=== PATIENT | male | born 1950 | race Native Hawaiian/Other Pacific Islander ===

== ENCOUNTER 2016-10-09 12:25 | Inpatient (IN) | payer BC ==
[2016-10-09] VITALS (9 sets, daily range): BP systolic 171–210; BP diastolic 83–96; PULSE 47–64; RESP 20; TEMP 96.8–98.3; O2SAT 94–96
[~2016-10-09] VITALS: Ht 167.6 cm; Wt 82.9 kg
[~2016-10-09 12:25] MED LIST: ALPR0.25 PO; ASPI81TA11 PO; AUGM875T PO; CARD4TAB2 PO; CITA20TA4 PO; FENO50TA PO; FURO20TA PO; GLIP5 PO; GLUCTAB PO; LIPI20TA PO; LOSA100T PO; PROC90TA PO
--- NOTE | 2016-10-09 12:59 | PD ---
HPI Chief Complaint: Respiratory Symptoms Time Seen by Provider: 12:54 Travel History International Travel<30 days: No Contact w/Intl Traveler<30days: No Traveled to known affect area: No History of Present Illness HPI 66-year-old male with history of COPD, hypertension, on Lasix although does not have confirmed history of CHF, presents to the ER today for 2 weeks' history of dyspnea on exertion getting worse, bilateral leg swelling, and had been seen by primary care physician and Dr. Huynh of pulmonology, sent in by primary care physician today for shortness of breath. Apparently, they had discussed increasing his Lasix with him but they were worried about his chronic renal insufficiency. Symptoms worsen with laying down. He denies any chest pains, fevers, or any other symptoms. Modifying Factors: None Associated Signs & Symptoms: Shortness of breath, dyspnea on exertion, leg swelling for 2 weeks Risk Factors: COPD history PFSH Past Medical History Anxiety: Yes Cancer: No High Cholesterol: Yes COPD: Yes Diabetes: Yes Patient Takes Glucophage: Yes Gastrointestinal Disorders: No Genitourinary: No Hypertension: Yes Immune Disorder: No Implanted Vascular Access Dvce: No Neurologic: No Reproductive: No Sleep Apnea: Yes Influenza Vaccination: No Past Surgical History Appendectomy: Yes Cholecystectomy: Yes Other Surgery: No Social History Alcohol Use: No Tobacco Use: No Substance Use: No Allergies-Medications (Allergen,Severity, Reaction): Coded Allergies: No Known Allergies (Verified , 10/09/16) Reported Meds & Prescriptions Reported Meds & Active Scripts Active Reported Glipizide 5 Mg Tab 2.5 Mg PO BIDAC Take 30 minutes before a meal Furosemide 20 Mg Tab 20 Mg PO DAILY Tricor (Fenofibrate) 145 Mg Tab 145 Mg PO DAILY Takw with food. Cardura (Doxazosin Mesylate) 4 Mg Tab 4 Mg PO DAILY Citalopram (Citalopram Hydrobromide) 20 Mg Tab 20 Mg PO DAILY Lipitor (Atorvastatin Calcium) 20 Mg Tab 20 Mg PO HS Aspirin 81 Mg Chew 81 Mg CHEW DAILY Alprazolam 0.25 Mg Tab 0.25 Mg PO HS Losartan (Losartan Potassium) 100 Mg Tab 100 Mg PO DAILY Metformin (Metformin HCl) 1,000 Mg Tab 1,000 Mg PO BIDPC With meals Review of Systems Except as stated in HPI: all other systems reviewed are Neg Physical Exam Narrative GENERAL: Well-developed elderly male patient currently in mild respiratory distress. Awake and oriented 3. SKIN: Focused skin assessment warm/dry. HEAD: Atraumatic. Normocephalic. EYES: Pupils equal and round. No scleral icterus. No injection or drainage. ENT: No nasal bleeding or discharge. Mucous membranes pink and moist. NECK: Trachea midline. No JVD. CARDIOVASCULAR: Regular rate and rhythm. No murmur appreciated. RESPIRATORY: No accessory muscle use. Decreased at the bases. Breath sounds equal bilaterally. GASTROINTESTINAL: Abdomen soft, non-tender, nondistended. Hepatic and splenic margins not palpable. MUSCULOSKELETAL: No obvious deformities. No clubbing. No cyanosis. Bilateral pitting edema the legs. NEUROLOGICAL: Awake and alert. No obvious cranial nerve deficits. Motor grossly within normal limits. Normal speech. PSYCHIATRIC: Appropriate mood and affect; insight and judgment normal. Data Data Last Documented VS Vital Signs Date Time Temp Pulse Resp B/P Pulse Ox O2 Delivery O2 Flow Rate FiO2 10/09/16 12:57 96 Room Air 10/09/16 12:57 20 10/09/16 12:56 54 199/89 10/09/16 12:30 98.3 Orders Complete Blood Count With Diff (10/09/16 12:54) Comprehensive Metabolic Panel (10/09/16 12:54) B-Type Natriuretic Peptide (10/09/16 12:54) D-Dimer (10/09/16 12:54) Act Partial Throm Time (Ptt) (10/09/16 12:54) Prothrombin Time / Inr (Pt) (10/09/16 12:54) Ckmb (Isoenzyme) Profile (10/09/16 12:54) Troponin I (10/09/16 12:54) Iv Access Insert/Monitor (10/09/16 12:54) Ecg Monitoring (10/09/16 12:54) Oximetry (10/09/16 12:54) Oxygen Administration (10/09/16 12:54) Chest, Single Ap (10/09/16 12:54) Sodium Chloride 0.9% Flush (Ns Flush) (10/09/16 13:00) Nitroglycerin 2% Oint (Nitroglycerin 2% (10/09/16 13:00) Furosemide Inj (Lasix Inj) (10/09/16 13:30) CKMB (10/09/16 12:40) CKMB% (10/09/16 12:40) Alprazolam (Xanax) (10/09/16 14:00) Clonidine (Catapres) (10/09/16 14:00) Ventilation & Perfusion Scan (10/09/16 14:05) Echo 2d Limited (10/09/16 14:05) Us Leg Venous Doppler Bilat (10/09/16 14:09) Labs Laboratory Tests Test 10/09/16 12:40 White Blood Count 3.7 TH/MM3 Red Blood Count 4.32 MIL/MM3 Hemoglobin 10.4 GM/DL Hematocrit 33.0 % Mean Corpuscular Volume 76.3 FL Mean Corpuscular Hemoglobin 23.9 PG Mean Corpuscular Hemoglobin 31.4 % Concent Red Cell Distribution Width 14.9 % Platelet Count 196 TH/MM3 Mean Platelet Volume 8.8 FL Neutrophils (%) (Auto) 64.9 % Lymphocytes (%) (Auto) 19.8 % Monocytes (%) (Auto) 12.1 % Eosinophils (%) (Auto) 2.3 % Basophils (%) (Auto) 0.9 % Neutrophils # (Auto) 2.5 TH/MM3 Lymphocytes # (Auto) 0.7 TH/MM3 Monocytes # (Auto) 0.4 TH/MM3 Eosinophils # (Auto) 0.1 TH/MM3 Basophils # (Auto) 0.0 TH/MM3 CBC Comment AUTO DIFF Differential Comment AUTO DIFF CONFIRMED Rouleau PRESENT Prothrombin Time 10.9 SEC Prothromb Time International 1.0 RATIO Ratio Activated Partial 25.4 SEC Thromboplast Time D-Dimer Quantitative (PE/DVT) 0.76 MG/L FEU Sodium Level 147 MEQ/L Potassium Level 3.9 MEQ/L Chloride Level 111 MEQ/L Carbon Dioxide Level 26.5 MEQ/L Anion Gap 10 MEQ/L Blood Urea Nitrogen 23 MG/DL Creatinine 1.50 MG/DL Estimat Glomerular Filtration 47 ML/MIN Rate Random Glucose 98 MG/DL Calcium Level 9.2 MG/DL Total Bilirubin 0.3 MG/DL Aspartate Amino Transf 23 U/L (AST/SGOT) Alanine Aminotransferase 29 U/L (ALT/SGPT) Alkaline Phosphatase 31 U/L Total Creatine Kinase 165 U/L Creatine Kinase MB 3.1 NG/ML Troponin I 0.04 NG/ML B-Type Natriuretic Peptide 149 PG/ML Total Protein 6.5 GM/DL Albumin 3.3 GM/DL MDM Medical Decision Making Medical Screen Exam Complete: Yes Emergency Medical Condition: Yes Medical Record Reviewed: Yes Interpretation(s) EKG shows NSR, no ST elevation or depression, and no arrhythmias. No significant T-wave inversions. Laboratory Tests Test 10/09/16 12:40 White Blood Count 3.7 TH/MM3 (4.0-11.0) Red Blood Count 4.32 MIL/MM3 (4.50-5.90) Hemoglobin 10.4 GM/DL (13.0-17.0) Hematocrit 33.0 % (39.0-51.0) Mean Corpuscular Volume 76.3 FL (80.0-100.0) Mean Corpuscular Hemoglobin 23.9 PG (27.0-34.0) Mean Corpuscular Hemoglobin 31.4 % Concent (32.0-36.0) Monocytes (%) (Auto) 12.1 % (0.0-8.0) Lymphocytes # (Auto) 0.7 TH/MM3 (1.0-4.8) Rouleau PRESENT (NORMAL) D-Dimer Quantitative (PE/DVT) 0.76 MG/L FEU (0.00-0.50) Sodium Level 147 MEQ/L (136-145) Chloride Level 111 MEQ/L (98-107) Blood Urea Nitrogen 23 MG/DL (7-18) Creatinine 1.50 MG/DL (0.60-1.30) Estimat Glomerular Filtration 47 ML/MIN (>89) Rate Alkaline Phosphatase 31 U/L (45-117) B-Type Natriuretic Peptide 149 PG/ML (0-100) Albumin 3.3 GM/DL (3.4-5.0) Last 24 hours Impressions Chest X-Ray 10/09/16 1254 Signed Impressions: Service Date/Time: September 13:13 - CONCLUSION: Mild interstitial and air space opacity in the lower lung zones, right greater than left. Although nonspecific pulmonary edema could have this appearance. Brock Lopez MD Differential Diagnosis Shortness of breath, bilateral leg swelling, dyspnea on exertionCOPD exacerbation versus CHF versus pneumonia versus fluid overload Narrative Course Chest x-ray is indicative of pulmonary edema. He was given Lasix and nitroglycerin in the ER. His blood pressure only came down a small amount and patient states that he has taken Xanax for anxiety no past and that has with his blood pressure as well. Patient was given Xanax. In addition, clonidine and was ordered as well for better blood pressure control. Patient has no known history of CHF and at this point, I suspect that he will need further evaluation. His d-dimer is elevated. I have contemplating putting him in for CTA versus V/Q but considering that his creatinine is elevated, V/Q is considered. Case was discussed with Dr. Huynh, patient's weather anchor, and he states that he feels the patient should be admitted for further evaluation of this new issue as well and agrees with VQ scan as well. He also asked for 2-D echo and leg ultrasounds for further evaluation. Case is discussed with Dr. Neumann for admission. Diagnosis Primary Impression: Pulmonary edema Admitting Information Admitting Physician Requests: Admit Cristin Samson MD October 09, 2016 12:59
[2016-10-09] MEDS ORDERED: SODIUM CHLORIDE 0.9% FLUSH 10 ML FLUSH IVF PRN (13:00)
[2016-10-09] MEDS ORDERED: NITROGLYCERIN 2% OINT 1 GM PACKET TOPICAL ONE (13:00)
[2016-10-09 13:06] LABS: AUTOMATED NEUTROPHIL # 2.5 TH/MM3 (1.8-7.7); BASOPHIL % 0.9 % (0.0-2.0); EOSINOPHIL # 0.1 TH/MM3 (0-0.4); EOSINOPHIL % 2.3 % (0.0-4.0); LYMPH % 19.8 % (9.0-44.0); LYMPHOCYTE # 0.7 TH/MM3 (1.0-4.8); MEAN CELL VOLUME 76.3 FL (80.0-100.0); MEAN CORPUSCULAR HEMOGLOBIN 23.9 PG (27.0-34.0); MEAN CORPUSCULAR HGB CONC 31.4 % (32.0-36.0); MONO % 12.1 % (0.0-8.0); NEUT % 64.9 % (16.0-70.0); PLATELET COUNT 196 TH/MM3 (150-450); RED BLOOD COUNT 4.32 MIL/MM3 (4.50-5.90); RED CELL DISTRIBUTION WIDTH 14.9 % (11.6-17.2); WHITE BLOOD COUNT 3.7 TH/MM3 (4.0-11.0)
[2016-10-09] MEDS ORDERED: FENO50TA PO (13:06)
[2016-10-09] MEDS ORDERED: LOSA100T PO (13:06)
[2016-10-09] MEDS ORDERED: CITA20TA4 PO (13:06)
[2016-10-09] MEDS ORDERED: ASPI81CH CHEW (13:06)
[2016-10-09] MEDS ORDERED: FURO20TA PO (13:06)
[2016-10-09] MEDS ORDERED: CARD4TAB2 PO (13:06)
[2016-10-09] MEDS ORDERED: ALPR0.25 PO (13:06)
[2016-10-09] MEDS ORDERED: LIPI20TA PO (13:06)
[2016-10-09] MEDS ORDERED: METF1000 PO (13:06)
[2016-10-09] MEDS ORDERED: GLIP5TAB8 PO (13:06)
[2016-10-09 13:07] LABS: HEMO FLAGS AUTO DIFF
[2016-10-09 13:18] LABS: CHLORIDE 111 MEQ/L (98-107); POTASSIUM 3.9 MEQ/L (3.5-5.1); SODIUM (NA) 147 MEQ/L (136-145)
[2016-10-09 13:22] LABS: ANION GAP 10 MEQ/L (5-15); BICARBONATE 26.5 MEQ/L (21.0-32.0); BLOOD UREA NITROGEN 23 MG/DL (7-18)
[2016-10-09 13:25] LABS: ALT (GPT) 29 U/L (12-78); AST (GOT) 23 U/L (15-37); ROULEAUX PRESENT (NORMAL); SCAN/DIFF AUTO DIFF CONFIRMED
[2016-10-09 13:26] LABS: GLOMERULAR FILTRATION RATE 47 ML/MIN (>89)
[2016-10-09 13:27] LABS: TOTAL BILIRUBIN ADULT 0.3 MG/DL (0.2-1.0)
[2016-10-09 13:28] LABS: ALKALINE PHOSPHATASE 31 U/L (45-117); CREATINE KINASE 165 U/L (39-308)
[2016-10-09 13:29] LABS: APTT (PATIENT) 25.4 SEC (24.3-30.1); PROTHROMBIN TIME - PATIENT 10.9 SEC (9.8-11.6)
[2016-10-09] MEDS ORDERED: FUROSEMIDE 40 MG/4 ML VIAL IV PUSH ONE (13:30)
[2016-10-09 13:40] LABS: CKMB 3.1 NG/ML (0.5-3.6)
--- NOTE | 2016-10-09 13:52 | RADHPO ---
EXAM DATE/TIME: 10/09/2016 13:13 [facility] COMPARISON: CHEST SINGLE AP, November 27, 2014, 13:47. INDICATIONS : Patient has been short of breath for two weeks. MEDICAL HISTORY : None. SURGICAL HISTORY : None. ENCOUNTER: Initial ACUITY: 2 weeks PAIN SCORE: 0/10 LOCATION: Bilateral chest FINDINGS: Portable AP view of the chest demonstrates a normal-sized cardiac silhouette. There are abnormal inte rstitial and air space opacities in the lower lung zones bilaterally. No pleural effusion or pneumoth orax is identified. The bones and soft tissues demonstrate no acute finding. CONCLUSION: Mild interstitial and air space opacity in the lower lung zones, right greater than left. Although no nspecific pulmonary edema could have this appearance. Brock Lopez MD on October 09, 2016 at 13:25 Board Certified Radiologist. This report was verified electronically.
[2016-10-09] MEDS ORDERED: ALPRAZolam 0.5 MG TAB PO ONE (14:00)
[2016-10-09] MEDS ORDERED: cloNIDine HCL 0.2 MG TAB PO ONE (14:00)
[2016-10-09] MEDS ORDERED: GLUCAGON 1 MG/ML VIAL OTHER PRN (14:45)
[2016-10-09] MEDS ORDERED: DEXTROSE 50% IN WATER 50 ML VIAL(D50) IV PRN (14:45)
--- NOTE | 2016-10-09 14:51 | HHI.HP ---
[facility] Porsche Yoder MD Admission Diagnosis pulmonary edema Diagnoses: (1) Pulmonary edema Diagnosis: Principal Chief Complaint: shortness of breath Travel History International Travel<30 Days: No Contact w/Intl Traveler <30 Da: No Traveled to Known Affected Are: No History of Present Illness patient is a 66 y/o male with history of hypertension and diabetes who presented to ER with shortness of breath. he says that he started to have sob about two weeks which has been getting worse. he denies any chest pain. he reports 14 pound weigh gain over the past two weeks. he's had orthopnea along with worsening pedal edema.he denies any abdominal pain, fever or chills. he says that his sob has got worse to the extent that he's sot able to walk as much. Review of Systems Constitutional: COMPLAINS OF: Fatigue, Weight gain, DENIES: Fever, Weight loss , Chills, Night Sweats Eyes: DENIES: Blurred vision, Diplopia, Vision loss, Double Vision Ears, nose, mouth, throat: DENIES: Tinnitus, Vertigo, Throat pain, Epistaxis Respiratory: DENIES: Apneas, Cough, Snoring, Wheezing, Hemoptysis, Sputum production, Shortness of breath Cardiovascular: COMPLAINS OF: Dyspnea on Exertion, Lower Extremity Edema, Orthopnea, DENIES: Chest pain, Palpitations, Syncope, PND, Claudication Gastrointestinal: DENIES: Abdominal pain, Black stools, Bloody stools, Constipation, Diarrhea, Nausea, Vomiting, Difficulty Swallowing, Anorexia Genitourinary: DENIES: Urinary frequency, Urgency, Hematuria, Dysuria Musculoskeletal: DENIES: Joint pain, Muscle aches, Stiffness, Joint Swelling Integumentary: DENIES: Rash Neurologic: DENIES: Abnormal gait, Headache, Localized weakness, Paresthesias, Seizures, Speech Problems, Tremor, Poor Balance Psychiatric: DENIES: Anxiety, Confusion, Mood changes, Depression, Hallucinations, Agitation, Suicidal Ideation, Homicidal Ideation, Delusions Past Family Social History Past Medical History hypertension diabetes mellitus rectal cancer dyslipidemia Past Surgical History rectal surgery cholecystectomy appendectomy Reported Medications Glipizide 5 Mg Tab 2.5 Mg PO BIDAC Take 30 minutes before a meal Furosemide 20 Mg Tab 20 Mg PO DAILY Tricor (Fenofibrate) 145 Mg Tab 145 Mg PO DAILY Takw with food. Cardura (Doxazosin Mesylate) 4 Mg Tab 4 Mg PO DAILY Citalopram (Citalopram Hydrobromide) 20 Mg Tab 20 Mg PO DAILY Lipitor (Atorvastatin Calcium) 20 Mg Tab 20 Mg PO HS Aspirin 81 Mg Chew 81 Mg CHEW DAILY Alprazolam 0.25 Mg Tab 0.25 Mg PO HS Losartan (Losartan Potassium) 100 Mg Tab 100 Mg PO DAILY Metformin (Metformin HCl) 1,000 Mg Tab 1,000 Mg PO BIDPC With meals Allergies: Coded Allergies: No Known Allergies (Verified , 10/09/16) Active Ordered Medications Current Medications Sodium Chloride (NS Flush) 2 ml UNSCH PRN IVF FLUSH AFTER USING IV ACCESS; Start 10/09/16 at 13:00 Nitroglycerin (Nitroglycerin 2% Oint) 1 inch ONCE ONCE TOPICAL Last administered on 10/09/16 13:09; Start 10/09/16 at 13:00; Stop 10/09/16 at 13:01 ; Status DC Furosemide (Lasix Inj) 40 mg ONCE ONCE IV PUSH Last administered on 10/09/16 13:36; Start 10/09/16 at 13:30; Stop 10/09/16 at 13:31; Status DC Alprazolam (Xanax) 0.5 mg ONCE ONCE PO Last administered on 10/09/16 13:50; Start 10/09/16 at 14:00; Stop 10/09/16 at 14:01; Status DC Clonidine (Catapres) 0.2 mg ONCE ONCE PO Last administered on 10/09/16 14:40 ; Start 10/09/16 at 14:00; Stop 10/09/16 at 14:01; Status DC Family History not relevant to this admission. Social History no smoking. Physical Exam Vital Signs Vital Signs Date Time Temp Pulse Resp B/P Pulse Ox O2 Delivery O2 Flow Rate FiO2 10/09/16 14:22 60 20 194/83 96 Room Air 10/09/16 12:57 96 Room Air 10/09/16 12:57 20 96 Room Air 10/09/16 12:56 54 20 199/89 95 Room Air 10/09/16 12:35 20 96 Room Air 10/09/16 12:30 98.3 64 20 206/87 96 Physical Exam GENERAL: looks weak, in no apparent distress. SKIN: No rashes, ecchymoses or lesions. Cool and dry. HEAD: Atraumatic. Normocephalic. No temporal or scalp tenderness. EYES: Pupils equal round and reactive. Extraocular motions intact. No scleral icterus. No injection or drainage. ENT: Nose without bleeding, purulent drainage or septal hematoma. Throat without erythema, tonsillar hypertrophy or exudate. Uvula midline. Airway patent. NECK: Trachea midline. No JVD or lymphadenopathy. Supple, nontender, no meningeal signs. CARDIOVASCULAR: Regular rate and rhythm without murmurs, gallops, or rubs. RESPIRATORY: Clear to auscultation. Breath sounds equal bilaterally. No wheezes , rales, or rhonchi. GASTROINTESTINAL: Abdomen soft, non-tender, nondistended. No hepato-splenomegaly , or palpable masses. No guarding. MUSCULOSKELETAL: Extremities with bilateral pedal edema. NEUROLOGICAL: Awake and alert. Cranial nerves II through XII intact. Motor and sensory grossly within normal limits. Five out of 5 muscle strength in all muscle groups. Normal speech. Laboratory Laboratory Tests Test 10/09/16 12:40 White Blood Count 3.7 Red Blood Count 4.32 Hemoglobin 10.4 Hematocrit 33.0 Mean Corpuscular Volume 76.3 Mean Corpuscular Hemoglobin 23.9 Mean Corpuscular Hemoglobin 31.4 Concent Red Cell Distribution Width 14.9 Platelet Count 196 Mean Platelet Volume 8.8 Neutrophils (%) (Auto) 64.9 Lymphocytes (%) (Auto) 19.8 Monocytes (%) (Auto) 12.1 Eosinophils (%) (Auto) 2.3 Basophils (%) (Auto) 0.9 Neutrophils # (Auto) 2.5 Lymphocytes # (Auto) 0.7 Monocytes # (Auto) 0.4 Eosinophils # (Auto) 0.1 Basophils # (Auto) 0.0 CBC Comment AUTO DIFF Differential Comment AUTO DIFF CONFIRMED Rouleau PRESENT Prothrombin Time 10.9 Prothromb Time International 1.0 Ratio Activated Partial 25.4 Thromboplast Time D-Dimer Quantitative (PE/DVT) 0.76 Sodium Level 147 Potassium Level 3.9 Chloride Level 111 Carbon Dioxide Level 26.5 Anion Gap 10 Blood Urea Nitrogen 23 Creatinine 1.50 Estimat Glomerular Filtration 47 Rate Random Glucose 98 Calcium Level 9.2 Total Bilirubin 0.3 Aspartate Amino Transf 23 (AST/SGOT) Alanine Aminotransferase 29 (ALT/SGPT) Alkaline Phosphatase 31 Total Creatine Kinase 165 Creatine Kinase MB 3.1 Troponin I 0.04 B-Type Natriuretic Peptide 149 Total Protein 6.5 Albumin 3.3 Result Diagram: 10/09/16 1240 10/09/16 1240 Imaging Last Impressions Chest X-Ray 10/09/16 1254 Signed Impressions: Service Date/Time: September 13:13 - CONCLUSION: Mild interstitial and air space opacity in the lower lung zones, right greater than left. Although nonspecific pulmonary edema could have this appearance. Brock Lopez MD Assessment and Plan Assessment and Plan A/P - CHF- type unknown at this time continue with IV diuretics- cardiology consulted- says that he had an echo about four months ago. CT of the chest and abdomen, V/Q scan - pending. pulmonary and cardiology consulted. -hypertension; not uncontrolled; will resume home meds- vasotec prn- will monitor and adjust the regimen as needed. -diabetes mellitus; hold oral hypoglycemics as this time- accu-check with SSI -renal insufficiency with unknown duration- will monitor closely while on diuretics -history of rectal cancer- -DVT prophylaxis with SCD's -consult PT Discussed Condition With ER physician and the patient. . Physician Certification 2 Midnight Certification Type: Admission for Inpatient Services Order for Inpatient Services The services are ordered in accordance with Medicare regulations or non- Medicare payer requirements, as applicable. In the case of services not specified as inpatient-only, they are appropriately provided as inpatient services in accordance with the 2-midnight benchmark. Estimated LOS (days): 2 days is the estimated time the patient will need to remain in the hospital, assuming treatment plan goals are met and no additional complications. Post-Hospital Plan: Home Problem Qualifiers (1) Pulmonary edema: Qualified Code: J81.0 - Acute pulmonary edema Geno Bravo MD October 09, 2016 14:51
--- NOTE | 2016-10-09 14:54 | RADHPO ---
EXAM DATE/TIME: 10/09/2016 14:24 [facility] COMPARISON: No previous studies available for comparison. INDICATIONS : Bilateral leg swelling. Shortness of breath. MEDICAL HISTORY : Hypercholesterolemia. Hypertension. Chronic obstructive pulmonary disease. Sleep apnea. Dyspnea. Diab etes. Anxiety. SURGICAL HISTORY : Appendectomy.Cholecystectomy. ENCOUNTER: Initial ACUITY: 1 week PAIN SCORE: 0/10 LOCATION: Bilateral leg. TECHNIQUE: Venous ultrasound of the left and right leg was performed from the inguinal ligament to the proximal calf. Real-time, color Doppler and spectral tracing, compression and augmentation techniques were us ed. FINDINGS: RIGHT LEG: There is normal compressibility of the deep venous system from the inguinal region to the proximal ca lf. No echogenic clot is seen in the lumen of the common femoral, femoral, popliteal, and posterior tibial veins. There is a normal response of the venous system to proximal and distal augmentation an d respiration. LEFT LEG: There is normal compressibility of the deep venous system from the inguinal region to the proximal ca lf. No echogenic clot is seen in the lumen of the common femoral, femoral, popliteal, and posterior tibial veins. There is a normal response of the venous system to proximal and distal augmentation an d respiration. CONCLUSION: Normal examination. Brock Sanchez MD on October 09, 2016 at 14:53 Board Certified Radiologist. This report was verified electronically.
--- NOTE | 2016-10-09 15:56 | RADHPO ---
EXAM DATE/TIME: 10/09/2016 15:03 [facility] COMPARISON: No previous studies available for comparison. INDICATIONS : Shortness of breath with exertion. RADIATION DOSE: 17.04 CTDIvol (mGy) ; Combined studies - Thorax/Abdomen/Pelvis MEDICAL HISTORY : Chronic obstructive pulmonary disease. Hypertension. Renal insufficiency, chronic. Diabetes. SURGICAL HISTORY : None. ENCOUNTER: Initial ACUITY: 2 weeks PAIN SCALE: 0/10 LOCATION: chest TECHNIQUE: Volumetric scanning of the chest was performed. Using automated exposure control and adjustment of t he mA and/or kV according to patient size, radiation dose was kept as low as reasonably achievable to obtain optimal diagnostic quality images. FINDINGS: There are small bilateral pleural effusions. There is dependent airspace disease in both lungs. Trace pericardial fluid. There is no hilar, mediastinal axillary adenopathy. No acute findings in the uppe r abdomen. Small hiatal hernia. Several calcified granulomata present. CONCLUSION: 1. Small bilateral pleural effusions with dependent airspace disease in both lungs most characteristi c of atelectasis. Trace pericardial effusion. No adenopathy. No acute findings in the upper abdomen. Khris Antonio MD on October 09, 2016 at 15:47 Board Certified Radiologist. This report was verified electronically.
--- NOTE | 2016-10-09 15:58 | RADHPO ---
EXAM DATE/TIME: 10/09/2016 15:03 [facility] COMPARISON: No previous studies available for comparison. INDICATIONS : Abdominal distention. ORAL CONTRAST: No oral contrast ingested. RADIATION DOSE: 17.04 CTDIvol (mGy) ; Combined studies - Thorax/Abdomen/Pelvis MEDICAL HISTORY : Renal insufficiency, chronic. Chronic obstructive pulmonary disease. Hypertension.Diabetes. SURGICAL HISTORY : Appendectomy. Cholecystectomy. ENCOUNTER: Initial ACUITY: 2 weeks PAIN SCALE: 0/10 LOCATION: Bilateral lower quadrant TECHNIQUE: Volumetric scanning of the abdomen and pelvis was performed. Using automated exposure control and ad justment of the mA and/or kV according to patient size, radiation dose was kept as low as reasonably achievable to obtain optimal diagnostic quality images. FINDINGS: There are small bilateral pleural effusions with basilar airspace disease most characteristic of atel ectasis. No acute findings in the liver, spleen, adrenals, kidneys pancreas. Previous cholecystectomy. No bowel obstruction. No free air or free fluid. There is mild anasarca. No acute bony abnormalities. CONCLUSION: 1. No acute findings within the abdomen. Small bilateral pleural effusions.. Mild anasarca. Previous cholecystectomy and appendectomy. 2. No hydronephrosis. Khris Antonio MD on October 09, 2016 at 15:54 Board Certified Radiologist. This report was verified electronically.
[2016-10-09] MEDS: INSULIN ASPART SUPPLEMENTAL SCALE SQ SCH ×2 (16:00→21:00)
[2016-10-09] MEDS: ENALAPRILAT 1.25 MG/ML VIAL IV PUSH PRN (16:09)
--- NOTE | 2016-10-09 17:08 | ECHLIM ---
Study Study Date:10/09/2016 STUDY CONCLUSIONS SUMMARY - Left ventricle: The cavity size was normal. Wall thickness was normal. Systolic function was at the lower limits of normal. The estimated ejection fraction was in the range of 50% to 55%. Wall motion was normal; there were no regional wall motion abnormalities. - Mitral valve: Mild to moderate regurgitation. - Pulmonary arteries: PA peak pressure: 33mm Hg (S). If LV function is below 40, please consider prescribing an ACEI or ARB or document rationale for non-use. PROCEDURE DATA STUDY STATUS: Elective. Procedure: Transthoracic echocardiography. Image quality was good. Scanning was performed from the parasternal, apical, and subcostal acoustic windows. Study completion: The patient tolerated the procedure well. Transthoracic echocardiography. M-mode, complete 2D, complete spectral Doppler, and color Doppler. Patient status: Inpatient. CARDIAC ANATOMY LEFT VENTRICLE: The cavity size was normal. Wall thickness was normal. Systolic function was at the lower limits of normal. The estimated ejection fraction was in the range of 50% to 55%. Wall motion was normal; there were no regional wall motion abnormalities. AORTIC VALVE: Trileaflet; normal thickness leaflets. Doppler: Transvalvular velocity was within the normal range. There was no stenosis. Trace to mild regurgitation. AORTA: Aortic root: The aortic root was normal in size. MITRAL VALVE: Structurally normal valve. Doppler: Transvalvular velocity was within the normal range. There was no evidence for stenosis. Mild to moderate regurgitation. LEFT ATRIUM: The atrium was normal in size. RIGHT VENTRICLE: The cavity size was normal. Wall thickness was normal. PULMONIC VALVE: Doppler: Transvalvular velocity was within the normal range. There was no evidence for stenosis. No regurgitation. TRICUSPID VALVE: Structurally normal valve. Doppler: Transvalvular velocity was within the normal range. Trace regurgitation. PULMONARY ARTERY: The main pulmonary artery was normal-sized. Systolic pressure was within the normal range. RIGHT ATRIUM: The atrium was normal in size. PERICARDIUM: There was no pericardial effusion. SYSTEMIC VEINS: Inferior vena cava: The vessel was normal in size. BASIC MEASUREMENTS ADULT NORMAL Left ventricle LV internal dimension, ED, chordal level, 45.9 mm 43-52 PLAX LV internal dimension, ES, chordal level, 35.8 mm 23-38 PLAX Fractional shortening, chordal level, PLAX *22 % >29 LV posterior wall thickness, ED 9.3 mm IVS/LVPW ratio, ED *1.53 <1.3 Ventricular septum Septal thickness, ED 14.2 mm DOPPLER MEASUREMENTS ADULT NORMAL Main pulmonary artery Pressure, S *33 mm Hg =30 Tricuspid valve Regurgitant peak velocity 186 cm/s Peak RV-RA gradient, S 14 mm Hg Maximal regurgitant velocity 186 cm/s Systemic veins Estimated CVP 5 mm Hg Right ventricle RV pressure, S *33 mm Hg <30 LEGEND: Mean values are shown as u=mean value. Asterisk (*) stanley values outside specified normal range. Prepared and signed by Jose G Iglesias [id number]
--- NOTE | 2016-10-09 17:23 | PD.CONS ---
HPI Service cardiology Consult Requested By hospitalist Reason for Consult htn and chf Primary Care Physician Porsche Yoder MD History of Present Illness admitted with progressive sob and lower ext edema no chest pains gained weight seems that there was a change in meds and was taking nifedipine and stopped came with BP markedly elevated cts and xrays and ecg and lab noted Review of Systems Consitutional: COMPLAINS OF: Fatigue Respiratory: COMPLAINS OF: Shortness of breath Psychiatric: COMPLAINS OF: Depression Endocrine: COMPLAINS OF: Weight gain Past Family Social History Allergies: Coded Allergies: No Known Allergies (Verified , 10/09/16) Past Medical History htn diabetes hyperlipidemia mild cad chronic edema Past Surgical History non contributing Reported Medications Reported Meds & Active Scripts Active Reported Glipizide 5 Mg Tab 2.5 Mg PO BIDAC Take 30 minutes before a meal Furosemide 20 Mg Tab 20 Mg PO DAILY Tricor (Fenofibrate) 145 Mg Tab 145 Mg PO DAILY Takw with food. Cardura (Doxazosin Mesylate) 4 Mg Tab 4 Mg PO DAILY Citalopram (Citalopram Hydrobromide) 20 Mg Tab 20 Mg PO DAILY Lipitor (Atorvastatin Calcium) 20 Mg Tab 20 Mg PO HS Aspirin 81 Mg Chew 81 Mg CHEW DAILY Alprazolam 0.25 Mg Tab 0.25 Mg PO HS Losartan (Losartan Potassium) 100 Mg Tab 100 Mg PO DAILY Metformin (Metformin HCl) 1,000 Mg Tab 1,000 Mg PO BIDPC With meals Active Ordered Medications Current Medications Medications (Trade) Dose Ordered Sig/Priyank Route Start Time Stop Time Status Last Admin (NS Flush) 2 ml UNSCH PRN IVF 10/09/16 13:00 (D50w (Vial) Inj) 50 ml UNSCH PRN IV 10/09/16 14:45 (Glucagon Inj) 1 mg UNSCH PRN OTHER 10/09/16 14:45 (Xanax) 0.25 mg HS PO 10/09/16 21:00 (Aspirin Chew) 81 mg DAILY CHEW 10/10/16 09:00 (Lipitor) 20 mg HS PO 10/09/16 21:00 (CeleXA) 20 mg DAILY PO 10/10/16 09:00 (Cardura) 4 mg DAILY PO 10/10/16 09:00 (Tricor) 145 mg DAILY PO 10/10/16 09:00 (Cozaar) 100 mg DAILY PO 10/10/16 09:00 (Vasotec Inj) 1.25 mg Q8H PRN IV PUSH 10/09/16 15:00 10/09/16 16:09 Family History non contributing 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 drugs no tobacco Physical Exam Vital Signs Vital Signs Date Time Temp Pulse Resp B/P Pulse Ox O2 Delivery O2 Flow Rate FiO2 10/09/16 16:33 47 10/09/16 14:22 60 20 194/83 96 Room Air 10/09/16 12:57 96 Room Air 10/09/16 12:57 20 96 Room Air 10/09/16 12:56 54 20 199/89 95 Room Air 10/09/16 12:35 20 96 Room Air 10/09/16 12:30 98.3 64 20 206/87 96 Laboratory Laboratory Tests Test 10/09/16 12:40 White Blood Count 3.7 Red Blood Count 4.32 Hemoglobin 10.4 Hematocrit 33.0 Mean Corpuscular Volume 76.3 Mean Corpuscular Hemoglobin 23.9 Mean Corpuscular Hemoglobin 31.4 Concent Red Cell Distribution Width 14.9 Platelet Count 196 Mean Platelet Volume 8.8 Neutrophils (%) (Auto) 64.9 Lymphocytes (%) (Auto) 19.8 Monocytes (%) (Auto) 12.1 Eosinophils (%) (Auto) 2.3 Basophils (%) (Auto) 0.9 Neutrophils # (Auto) 2.5 Lymphocytes # (Auto) 0.7 Monocytes # (Auto) 0.4 Eosinophils # (Auto) 0.1 Basophils # (Auto) 0.0 CBC Comment AUTO DIFF Differential Comment AUTO DIFF CONFIRMED Rouleau PRESENT Prothrombin Time 10.9 Prothromb Time International 1.0 Ratio Activated Partial 25.4 Thromboplast Time D-Dimer Quantitative (PE/DVT) 0.76 Sodium Level 147 Potassium Level 3.9 Chloride Level 111 Carbon Dioxide Level 26.5 Anion Gap 10 Blood Urea Nitrogen 23 Creatinine 1.50 Estimat Glomerular Filtration 47 Rate Random Glucose 98 Calcium Level 9.2 Total Bilirubin 0.3 Aspartate Amino Transf 23 (AST/SGOT) Alanine Aminotransferase 29 (ALT/SGPT) Alkaline Phosphatase 31 Total Creatine Kinase 165 Creatine Kinase MB 3.1 Troponin I 0.04 B-Type Natriuretic Peptide 149 Total Protein 6.5 Albumin 3.3 Result Diagram: 10/09/16 1240 10/09/16 1240 Assessment and Plan Problem List: (1) Diabetes mellitus (2) Hyperlipidemia (3) Hypertension (4) Pulmonary edema Assessment and Plan: bp control and diuresis and follow up on echo Problem Qualifiers (1) Pulmonary edema: Qualified Code: J81.1 - Chronic pulmonary edema Stevie Byrd MD October 09, 2016 17:23
--- NOTE | 2016-10-09 18:21 | MB ---
cc: AMINA HUYNH M.D. DATE OF CONSULTATION: 10/09/2016. REASON FOR CONSULTATION: COPD, obstructive sleep apnea. HISTORY OF PRESENT ILLNESS Mr. Cortes is a 66-year-old male with known history of diabetes mellitus, hypertension, COPD and obstructive sleep apnea on C-PAP therapy. The patient presented to the emergency room with worsening shortness of breath. No fever. No chills. He has been constantly gaining weight and has increased ankle edema. He does have orthopnea. The patient cannot walk a few steps without being short of breath. No fever. No chills. No cough. No expectoration. PAST MEDICAL HISTORY: His past medical history is that of: 1. Diabetes mellitus. 2. Hypertension. 3. Obstructive sleep apnea. 4. Hyperlipidemia. 5. History of rectal cancer surgically removed. 6. Previous cholecystectomy. 7. Appendectomy. MEDICATIONS AT HOME: 1. Lasix. 2. Glipizide. 3. Tricor. 4. Cardura. 5. Citalopram. 6. Lipitor. 7. Aspirin. 8. Alprazolam. 9. Metformin. 10. Losartan. ALLERGIES: NONE KNOWN TO MEDICATIONS. FAMILY HISTORY: Noncontributory. REVIEW OF SYSTEMS: A twelve-point review of systems is as per the history of present illness and past history, otherwise negative. PHYSICAL EXAMINATION: GENERAL: On exam, the patient is alert. VITAL SIGNS: His temperature is 98, his pulse is 80, respirations 20, blood pressure 190/80. HEAD, EYES, EARS, NOSE, THROAT: Unremarkable. Eyes without icterus. NECK: Without adenopathy, thyroid enlargement. CHEST: No dullness to percussion. Clear to auscultation. CARDIAC: PMI not appreciated. S1-S2 audible. No murmur, no rub. ABDOMEN: Lax. Bowel sounds audible. EXTREMITIES: 2+ edema. LABORATORY DATA: White count 3.7, hemoglobin 10.4, hematocrit 33, platelets are 196,000. BUN 23, creatinine 1.5, sodium 147, potassium 3.7. IMAGING STUDIES: CT scan of abdomen and pelvis without acute findings, small bibasilar bilateral pleural effusions are noted as well as mild anasarca, previous appendectomy and cholecystectomy. CT scan of the chest with small bilateral pleural effusions underlying atelectatic change, trace pericardial effusion. No adenopathy or mass lesion identified. Ultrasound of both lower extremities is normal. IMPRESSION: 1. Increasing shortness of breath, multifactorial. 2. COPD. 3. Question element of congestive heart failure. 4. Chronic kidney disease. 5. Hypertension, poorly controlled. 6. Diabetes mellitus. 7. Obstructive sleep apnea. PLAN: The patient's oxygenation is adequate on room air at present. He is with obvious fluid overload and mild ascites. Cautious diuresis would be appropriate as well as keeping an eye on his kidney function. Bronchodilator therapy will be maintained. He may bring his own C-PAP machine from home and use it if he wishes to do so. I do thank you for asking me to partake in Mr. Cortes's care. Amina Huynh MD WWW/ABRIL /4:27 PM /6:11 PM
[2016-10-09] MEDS: FUROSEMIDE 20 MG TAB PO SCH (18:32)
[2016-10-09] MEDS: ATORVASTATIN 20 MG TAB PO SCH (21:36)
[2016-10-09] MEDS: ALPRAZolam 0.25 MG TAB PO SCH (21:36)
[2016-10-09] MEDS: LABETALOL HCL 200 MG TAB PO SCH (21:37)
[2016-10-09] MEDS: LOSARTAN 50 MG TAB PO SCH (21:37)
[2016-10-09] MEDS ORDERED: cloNIDine HCL 0.1 MG TAB PO ONE (23:45)
[2016-10-10] VITALS (13 sets, daily range): BP systolic 121–212; BP diastolic 55–99; PULSE 51–62; RESP 16–24; TEMP 97–98.1; O2SAT 92–98
[2016-10-10] MEDS ORDERED: diphenhydrAMINE HCL 25 MG CAP PO ONE (00:45)
[2016-10-10] MEDS: ENALAPRILAT 1.25 MG/ML VIAL IV PUSH PRN ×2 (01:10→16:10)
[2016-10-10] MEDS ORDERED: cloNIDine HCL 0.1 MG TAB PO ONE (03:15)
[2016-10-10] MEDS ORDERED: ALPRAZolam 0.5 MG TAB PO ONE (03:15)
[2016-10-10] MEDS ORDERED: IOHEXOL 350 MG/ML 10 ML VIAL (for RAD DIAG) IV ONE (05:00)
[2016-10-10] MEDS: hydrALAZINE HCL 20 MG/ML VIAL IV PUSH PRN ×3 (05:21→23:00)
[2016-10-10] MEDS: INSULIN ASPART SUPPLEMENTAL SCALE SQ SCH ×5 (06:28→22:02)
--- NOTE | 2016-10-10 07:24 | RADHPO ---
EXAM DATE/TIME: 10/10/2016 05:55 [facility] COMPARISON: CT ABDOMEN & PELVIS W/O CONTRAST, October 09, 2016, 15:03. INDICATIONS : Evaluate for aoritc dissection. IV CONTRAST: 100 cc Omnipaque 350 (iohexol) IV RADIATION DOSE: 21.13 CTDIvol (mGy) MEDICAL HISTORY : Diabetes mellitus type 2. Chronic obstructive pulmonary disease. Carcinoma, colon.Hypertension. SURGICAL HISTORY : Colon resection. Cholecystectomy.Appendectomy. ENCOUNTER: Initial ACUITY: 2 days PAIN SCALE: 0/10 LOCATION: aorta. TECHNIQUE: Volumetric scanning was performed using a multi-row detector CT scanner. The data was post processed with a variety of visualization algorithms including full volume maximum intensity projection, multi -planar sliding thin slab reformation, curved planar reformation, and surface rendering techniques. Using automated exposure control and adjustment of the mA and/or kV according to patient size, radiat ion dose was kept as low as reasonably achievable to obtain optimal diagnostic quality images. FINDINGS: Thoracic and abdominal aorta have normal caliber. There is no dissection. Minimal patchy atherosclero tic plaque noted. There is mild crump chamber enlargement of the heart. There is a small pericardial effusion, similar to yesterday. Small moderate right and small left pleural effusions are again noted with bibasilar dependent atelec tasis. No pneumothorax. Below the diaphragm, trace ascites/anasarca noted, mostly retroperitoneal. This is generalized, not c entered around the aorta. No obstruction or acute inflammatory changes are noted. A 16mm upper pole c yst seen of the left kidney. Patient has had previous cholecystectomy. There is a small fat containin g umbilical hernia. Bilaterally normal hernias containing fat only are also noted. CONCLUSION: 1. No aortic dissection. No aneurysm. 2. Pleural effusions with bibasilar atelectasis. 3. Mild crump chamber enlargement of the heart and a small pericardial effusion. 4. Mild edema/trace fluid in the abdomen, mostly retroperitoneal. Brock Gooden MD on October 10, 2016 at 7:18 Board Certified Radiologist. This report was verified electronically.
[2016-10-10] MEDS: ASPIRIN 81 MG CHEW TAB CHEW SCH (08:39)
[2016-10-10] MEDS: CITALOPRAM HYDROBROMIDE 20 MG TAB PO SCH (08:39)
[2016-10-10] MEDS: DOXAZOSIN MESYLATE 4 MG TAB PO SCH (08:39)
[2016-10-10] MEDS: LABETALOL HCL 200 MG TAB PO SCH ×2 (08:40→20:59)
[2016-10-10] MEDS: LOSARTAN 50 MG TAB PO SCH ×2 (08:40→20:59)
[2016-10-10] MEDS: FUROSEMIDE 20 MG TAB PO SCH ×2 (08:40→17:04)
[2016-10-10] MEDS: FENOFIBRATE 145 MG TAB PO SCH (08:40)
[2016-10-10] MEDS ORDERED: LOSARTAN 50 MG TAB PO SCH (09:00)
--- NOTE | 2016-10-10 10:49 | HHI.PR ---
Subjective Remarks still with some sob although stable on RA. denies chest pain. BP improved this morning. family at the bedside. Objective Vitals Vital Signs Date Time Temp Pulse Resp B/P Pulse Ox O2 Delivery O2 Flow Rate FiO2 10/10/16 08:00 98.1 62 20 135/70 95 10/10/16 06:30 187/91 10/10/16 05:55 57 163/79 10/10/16 05:03 98.0 51 24 189/78 96 206/90 10/10/16 02:53 212/88 198/99 10/10/16 01:00 195/86 10/10/16 00:00 97.3 57 20 160/94 97 10/09/16 23:00 210/90 10/09/16 23:00 50 10/09/16 20:00 97.2 50 20 196/90 94 10/09/16 17:15 171/83 10/09/16 16:33 47 10/09/16 15:30 96.8 51 20 188/96 95 10/09/16 14:22 60 20 194/83 96 Room Air 10/09/16 12:57 96 Room Air 10/09/16 12:57 20 96 Room Air 10/09/16 12:56 54 20 199/89 95 Room Air 10/09/16 12:35 20 96 Room Air 10/09/16 12:30 98.3 64 20 206/87 96 I/O 10/09/16 10/09/16 10/09/16 10/10/16 10/10/16 10/10/16 07:00 15:00 23:00 07:00 15:00 23:00 Intake Total 486 ml 0 ml Balance 486 ml 0 ml Intake Oral 480 ml IV Total 6 ml 0 ml # Voids 2 # Bowel Movements 0 Result Diagram: 10/09/16 1240 10/09/16 1240 Imaging Last Impressions Aorta CTA 10/10/16 0000 Signed Impressions: Service Date/Time: Monday, October 10, 2016 05:55 - CONCLUSION: 1. No aortic dissection. No aneurysm. 2. Pleural effusions with bibasilar atelectasis. 3. Mild crump chamber enlargement of the heart and a small pericardial effusion. 4. Mild edema/trace fluid in the abdomen, mostly retroperitoneal. Brock Gooden MD Chest CT 10/09/16 1414 Signed Impressions: Service Date/Time: September 15:03 - CONCLUSION: 1. Small bilateral pleural effusions with dependent airspace disease in both lungs most characteristic of atelectasis. Trace pericardial effusion. No adenopathy. No acute findings in the upper abdomen. Khris Antonio MD Abdomen/Pelvis CT 10/09/16 1414 Signed Impressions: Service Date/Time: September 15:03 - CONCLUSION: 1. No acute findings within the abdomen. Small bilateral pleural effusions.. Mild anasarca. Previous cholecystectomy and appendectomy. 2. No hydronephrosis. Khris Antonio MD Lower Extremity Ultrasound 10/09/16 1409 Signed Impressions: Service Date/Time: , October 09, 2016 14:24 - CONCLUSION: Normal examination. Brock Sanchez MD Chest X-Ray 10/09/16 1254 Signed Impressions: Service Date/Time: September 13:13 - CONCLUSION: Mild interstitial and air space opacity in the lower lung zones, right greater than left. Although nonspecific pulmonary edema could have this appearance. Brock Lopez MD Objective Remarks GENERAL: This is a well-nourished, well-developed patient, in no apparent distress. CARDIOVASCULAR: Regular rate and regular rhythm without murmurs, gallops, or rubs. RESPIRATORY: Clear to auscultation. Breath sounds equal bilaterally. No wheezes , rales, or rhonchi. GASTROINTESTINAL: Abdomen soft, non-tender, nondistended. Normal, active bowel sounds MUSCULOSKELETAL: Extremities with bilateral pedal edema. NEURO: Alert & Oriented x4 to person, place, time, situation. Moves all ext x4 Procedures none Medications and IVs Current Medications Sodium Chloride (NS Flush) 2 ml UNSCH PRN IVF FLUSH AFTER USING IV ACCESS; Start 10/09/16 at 13:00 Nitroglycerin (Nitroglycerin 2% Oint) 1 inch ONCE ONCE TOPICAL Last administered on 10/09/16 13:09; Start 10/09/16 at 13:00; Stop 10/09/16 at 13:01 ; Status DC Furosemide (Lasix Inj) 40 mg ONCE ONCE IV PUSH Last administered on 10/09/16 13:36; Start 10/09/16 at 13:30; Stop 10/09/16 at 13:31; Status DC Alprazolam (Xanax) 0.5 mg ONCE ONCE PO Last administered on 10/09/16 13:50; Start 10/09/16 at 14:00; Stop 10/09/16 at 14:01; Status DC Clonidine (Catapres) 0.2 mg ONCE ONCE PO Last administered on 10/09/16 14:40 ; Start 10/09/16 at 14:00; Stop 10/09/16 at 14:01; Status DC Dextrose (D50w (Vial) Inj) 50 ml UNSCH PRN IV HYPOGLYCEMIA-SEE COMMENTS; Start 10/09/16 at 14:45 Glucagon (Glucagon Inj) 1 mg UNSCH PRN OTHER HYPOGLYCEMIA-SEE COMMENTS; Start 10/09/16 at 14:45 Insulin Aspart (NovoLOG SUPPLEMENTAL SCALE) 1 ACHS SLIDING SCALE SQ ; Start at 16:00 Alprazolam (Xanax) 0.25 mg HS PO Last administered on 10/09/16 21:36; Start at 21:00 Aspirin (Aspirin Chew) 81 mg DAILY CHEW Last administered on 10/10/16 08:39; Start 10/10/16 at 09:00 Atorvastatin Calcium (Lipitor) 20 mg HS PO Last administered on 10/09/16 21:36 ; Start 10/09/16 at 21:00 Citalopram Hydrobromide (CeleXA) 20 mg DAILY PO Last administered on 10/10/16 08:39; Start 10/10/16 at 09:00 Doxazosin Mesylate (Cardura) 4 mg DAILY PO Last administered on 10/10/16 08:39 ; Start 10/10/16 at 09:00 Fenofibrate (Tricor) 145 mg DAILY PO Last administered on 10/10/16 08:40; Start 10/10/16 at 09:00 Losartan Potassium (Cozaar) 100 mg DAILY PO ; Start 10/10/16 at 09:00; Stop at 09:00; Status DC Enalaprilat (Vasotec Inj) 1.25 mg Q8H PRN IV PUSH SBP> OR = 180, DBP> OR = 100 Last administered on 10/10/16 01:10; Start 10/09/16 at 15:00 Labetalol HCl (Trandate) 200 mg Q12HR PO Last administered on 10/10/16 08:40; Start 10/09/16 at 21:00 Losartan Potassium (Cozaar) 50 mg Q12HR PO Last administered on 10/10/16 08:40 ; Start 10/09/16 at 21:00 Furosemide (Lasix) 20 mg BID@09,18 PO Last administered on 10/10/16 08:40; Start 10/09/16 at 18:00 Clonidine (Catapres) 0.1 mg ONCE ONCE PO Last administered on 10/09/16 23:48 ; Start 10/09/16 at 23:45; Stop 10/09/16 at 23:46; Status DC Diphenhydramine HCl (Benadryl) 25 mg ONCE ONCE PO Last administered on 01:09; Start 10/10/16 at 00:45; Stop 10/10/16 at 00:48; Status DC Clonidine (Catapres) 0.1 mg ONCE ONCE PO Last administered on 10/10/16 03:18 ; Start 10/10/16 at 03:15; Stop 10/10/16 at 03:16; Status DC Alprazolam (Xanax) 0.5 mg ONCE ONCE PO Last administered on 10/10/16 03:17; Start 10/10/16 at 03:15; Stop 10/10/16 at 03:16; Status DC Hydralazine HCl (Apresoline Inj) 10 mg Q30M PRN IV PUSH bp>170/90 Last administered on 10/10/16 06:28; Start 10/10/16 at 05:15 Iohexol (Omnipaque 350 Inj) 100 ml STK-MED ONCE IV Last administered on 05:00; Start 10/10/16 at 05:00; Stop 10/10/16 at 07:02; Status DC A/P Assessment and Plan - CHF- acute on chronic diastolic- EF 55% continue with diuretics- cardiology consulted- pulmonary following. -hypertension; better uncontrolled; resumed home meds- vasotec prn- will monitor and adjust the regimen as needed. -diabetes mellitus; hold oral hypoglycemics as this time- accu-check with SSI -renal insufficiency with unknown duration- will monitor closely while on diuretics -history of rectal cancer- -DVT prophylaxis with SCD's -PT evaluation appreciated. Geno Bravo MD October 10, 2016 10:49
--- NOTE | 2016-10-10 15:12 | PD.CARD.PN ---
Subjective Subjective Remarks feels better sob fatigue wants to go home Objective Vital Signs / I&O Vital Signs Date Time Temp Pulse Resp B/P Pulse Ox O2 Delivery O2 Flow Rate FiO2 10/10/16 11:49 97.9 62 20 121/55 92 10/10/16 08:00 98.1 62 20 135/70 95 10/10/16 06:30 187/91 10/10/16 05:55 57 163/79 10/10/16 05:03 98.0 51 24 189/78 96 206/90 10/10/16 02:53 212/88 198/99 10/10/16 01:00 195/86 10/10/16 00:00 97.3 57 20 160/94 97 10/09/16 23:00 210/90 10/09/16 23:00 50 10/09/16 20:00 97.2 50 20 196/90 94 10/09/16 17:15 171/83 10/09/16 16:33 47 10/09/16 15:30 96.8 51 20 188/96 95 I/O 10/09/16 10/09/16 10/09/16 10/10/16 10/10/16 10/10/16 07:00 15:00 23:00 07:00 15:00 23:00 Intake Total 486 ml 0 ml 960 ml Output Total 650 ml Balance 486 ml 0 ml 310 ml Intake Oral 480 ml 960 ml IV Total 6 ml 0 ml Output Urine Total 650 ml # Voids 2 3 # Bowel Movements 0 Physical Exam no sig changes and mild edema Assessment and Plan Problem List: (1) Diabetes mellitus (2) Hyperlipidemia (3) Hypertension (4) Pulmonary edema Assessment and Plan: get us chest for effusion markings and sizing adjust bp ambulate if us was ok then ok home ambulate follow up in 1 week in office Problem Qualifiers (1) Pulmonary edema: Qualified Code: J81.1 - Chronic pulmonary edema Stevie Byrd MD October 10, 2016 15:12
--- NOTE | 2016-10-10 15:45 | RADHPO ---
EXAM DATE/TIME: 10/10/2016 15:17 [facility] COMPARISON: No previous studies available for comparison. INDICATIONS : Right chest marking. Pleural effusion. MEDICAL HISTORY : Hypercholesterolemia. Hypertension. Chronic obstructive pulmonary disease.Sleep apnea. Dyspnea. Diabe wanda. Anxiety. SURGICAL HISTORY : Appendectomy. Cholecystectomy. ENCOUNTER: Subsequent ACUITY: 1 week PAIN SCORE: 0/10 LOCATION: Right chest MEASUREMENTS: SKIN TO PARIETAL PLEURA: 2.6 cm SKIN TO MAX SAFE DEPTH: 3.4 cm ESTIMATED FLUID VOLUME: 438 cc FLUID COMPOSITION: simple FINDINGS: Pleural effusion as above. A pradeep was placed on the skin surface superficial to the pleural fluid col lection. CONCLUSION: 1. Pleural effusion as above Lionel Clark MD on October 10, 2016 at 15:43 Board Certified Radiologist. This report was verified electronically.
--- NOTE | 2016-10-10 16:25 | EKG ---
Date Performed: 10/09/2016 Time Performed: 12:27:18 PTAGE: 66 years EKG: Sinus rhythm Since previous tracing, no significant change noted Normal ECG PREVIOUS TRACING : 11/27/2014 13.46 DOCTOR: Lionel Grant Interpretating Date/Time 10/10/2016 16:25:07
--- NOTE | 2016-10-10 19:04 | HHI.PR ---
Subjective Remarks impression SOB IMPROVING BP STILL TOO HIGH Objective Vital Signs Date Time Temp Pulse Resp B/P Pulse Ox O2 Delivery O2 Flow Rate FiO2 10/10/16 18:36 150/76 10/10/16 17:05 170/78 10/10/16 15:57 97.0 55 20 191/82 98 10/10/16 11:49 97.9 62 20 121/55 92 10/10/16 08:00 98.1 62 20 135/70 95 10/10/16 06:30 187/91 10/10/16 05:55 57 163/79 10/10/16 05:03 98.0 51 24 189/78 96 206/90 10/10/16 02:53 212/88 198/99 10/10/16 01:00 195/86 10/10/16 00:00 97.3 57 20 160/94 97 10/09/16 23:00 210/90 10/09/16 23:00 50 10/09/16 20:00 97.2 50 20 196/90 94 I/O 10/09/16 10/09/16 10/09/16 10/10/16 10/10/16 10/10/16 07:00 15:00 23:00 07:00 15:00 23:00 Intake Total 486 ml 0 ml 960 ml Output Total 650 ml Balance 486 ml 0 ml 310 ml Intake Oral 480 ml 960 ml IV Total 6 ml 0 ml Output Urine Total 650 ml # Voids 2 3 # Bowel Movements 0 Result Diagram: 10/09/16 1240 10/09/16 1240 Objective Remarks GENERAL: SKIN: Warm and dry. HEAD: Atraumatic. Normocephalic. EYES: Pupils equal and round. No scleral icterus. No injection or drainage. ENT: No nasal bleeding or discharge. Mucous membranes pink and moist. NECK: Trachea midline. No JVD. CARDIOVASCULAR: Regular rate and rhythm. RESPIRATORY: No accessory muscle use. DECREASE BREATH SOUNDS AT BASIS. GASTROINTESTINAL: Abdomen soft, non-tender, nondistended. Hepatic and splenic margins not palpable. MUSCULOSKELETAL: Extremities without clubbing, cyanosis, or edema. No obvious deformities. NEUROLOGICAL: Awake and alert. No obvious cranial nerve deficits. Motor grossly within normal limits. Five out of 5 muscle strength in the arms and legs. Normal speech. PSYCHIATRIC: Appropriate mood and affect; insight and judgment normal. Assessment and Plan Assessment and Plan IMP: COPD CHF SMALL BILATERAL EFFUSIONS DM HTN CKD PLAN BRONCHODILATORS DIURESIS NO NEED FOR THORACENTESIS AT PRESENT HOPEFULLY EDEMA , ASCITIS AND EFFUSION WILL RESOLVE WITH MEDICAL THERAPY CXAmina Melendrez AM, MD October 10, 2016 19:04
[2016-10-10] MEDS: METFORMIN HOLD POST IV CONTRAST SCH (20:00)
[2016-10-10] MEDS: hydrALAZINE HCL 25 MG TAB PO SCH (20:59)
[2016-10-10] MEDS: ATORVASTATIN 20 MG TAB PO SCH (20:59)
[2016-10-10] MEDS: ALPRAZolam 0.25 MG TAB PO SCH (22:03)
[2016-10-10 22:17] LABS: POTASSIUM 3.7 MEQ/L (3.5-5.1)
[2016-10-11] MEDS ORDERED: MORPHINE SULFATE 4 MG/ML INJ IV PUSH ONE
[2016-10-11] MEDS: NITROGLYCERIN 2% OINT 1 GM PACKET TOPICAL SCH ×3 (00:07→12:51)
[2016-10-11 00:52] VITALS: BP 146/68; PULSE 62; RESP 20; O2SAT 96
[2016-10-11 04:00] VITALS: BP 163/82; PULSE 58; RESP 16; TEMP 98; O2SAT 97
[2016-10-11] MEDS: METFORMIN HOLD POST IV CONTRAST SCH (05:44)
[2016-10-11] MEDS: INSULIN ASPART SUPPLEMENTAL SCALE SQ SCH ×2 (06:20→11:00)
[2016-10-11 07:32] LABS: POTASSIUM 3.4 MEQ/L (3.5-5.1)
[2016-10-11 07:42] LABS: BICARBONATE 28.1 MEQ/L (21.0-32.0)
[2016-10-11 08:00] VITALS: BP 155/80; PULSE 53; RESP 19; TEMP 97.1; O2SAT 95
[2016-10-11] MEDS: LOSARTAN 50 MG TAB PO SCH (08:42)
[2016-10-11] MEDS: CITALOPRAM HYDROBROMIDE 20 MG TAB PO SCH (08:42)
[2016-10-11] MEDS: FENOFIBRATE 145 MG TAB PO SCH (08:42)
[2016-10-11] MEDS: hydrALAZINE HCL 25 MG TAB PO SCH (08:42)
[2016-10-11] MEDS: ASPIRIN 81 MG CHEW TAB CHEW SCH (08:42)
[2016-10-11] MEDS: FUROSEMIDE 20 MG TAB PO SCH (08:43)
[2016-10-11] MEDS: DOXAZOSIN MESYLATE 4 MG TAB PO SCH (08:43)
[2016-10-11] MEDS: LABETALOL HCL 200 MG TAB PO SCH (08:48)
--- NOTE | 2016-10-11 09:17 | RADHPO ---
EXAM DATE/TIME: 10/11/2016 08:59 [place] COMPARISON: CT THORAX W/O CONTRAST, October 09, 2016, 15:03. CHEST PA & LAT, April 30, 2015, 8:57. INDICATIONS : Short of breath MEDICAL HISTORY : Chronic obstructive pulmonary disease. Congestive heart failure. SURGICAL HISTORY : None. ENCOUNTER: Subsequent ACUITY: 1 month PAIN SCORE: 0/10 LOCATION: Bilateral chest FINDINGS: Frontal and lateral views of the chest demonstrate cardiac silhouette size at the upper limits for no rmal. Lungs are underinflated and there are small bibasilar pleural-parenchymal opacities similar to the recent chest CT. No pneumothorax is visualized. Bones and soft tissues demonstrate no acute findi ng. CONCLUSION: There are small bilateral pleural effusions with associated compressive atelectasis and/or consolidat ion at the lung bases. Findings have not significantly changed when compared to the chest CT from 2 d ays ago. Brock Lopez MD on October 11, 2016 at 9:14 Board Certified Radiologist. This report was verified electronically.
--- NOTE | 2016-10-11 09:52 | HHI.PR ---
Subjective Remarks resting comfortably. had some chest pain last night which has resolved. now he says that can walk more without dyspnea. no other complaints today. Objective Vitals Vital Signs Date Time Temp Pulse Resp B/P Pulse Ox O2 Delivery O2 Flow Rate FiO2 10/11/16 08:00 97.1 53 19 155/80 95 10/11/16 04:00 98.0 58 16 163/82 97 10/11/16 00:52 62 20 146/68 96 10/11/16 00:27 18 10/10/16 21:23 97.6 54 16 161/81 95 10/10/16 20:00 52 10/10/16 18:36 150/76 10/10/16 17:05 170/78 10/10/16 15:57 97.0 55 20 191/82 98 10/10/16 11:49 97.9 62 20 121/55 92 I/O 10/10/16 10/10/16 10/10/16 10/11/16 10/11/16 10/11/16 07:00 15:00 23:00 07:00 15:00 23:00 Intake Total 0 ml 960 ml 200 ml Output Total 650 ml Balance 0 ml 310 ml 200 ml Intake Oral 960 ml 200 ml IV Total 0 ml Output Urine Total 650 ml # Voids 3 2 2 # Bowel Movements 2 Result Diagram: 10/09/16 1240 10/11/16 0613 Imaging Last Impressions Chest X-Ray 10/11/16 0000 Signed Impressions: Service Date/Time: Tuesday, October 11, 2016 08:59 - CONCLUSION: There are small bilateral pleural effusions with associated compressive atelectasis and/or consolidation at the lung bases. Findings have not significantly changed when compared to the chest CT from 2 days ago. Brock Lopez MD Chest Ultrasound 10/10/16 0000 Signed Impressions: Service Date/Time: Monday, October 10, 2016 15:17 - CONCLUSION: 1. Pleural effusion as above Lionel Clark MD Aorta CTA 10/10/16 0000 Signed Impressions: Service Date/Time: Monday, October 10, 2016 05:55 - CONCLUSION: 1. No aortic dissection. No aneurysm. 2. Pleural effusions with bibasilar atelectasis. 3. Mild crump chamber enlargement of the heart and a small pericardial effusion. 4. Mild edema/trace fluid in the abdomen, mostly retroperitoneal. Brock Gooden MD Chest CT 10/09/16 1414 Signed Impressions: Service Date/Time: September 15:03 - CONCLUSION: 1. Small bilateral pleural effusions with dependent airspace disease in both lungs most characteristic of atelectasis. Trace pericardial effusion. No adenopathy. No acute findings in the upper abdomen. Khris Antonio MD Abdomen/Pelvis CT 10/09/16 141 Signed Impressions: Service Date/Time: , October 09, 2016 15:03 - CONCLUSION: 1. No acute findings within the abdomen. Small bilateral pleural effusions.. Mild anasarca. Previous cholecystectomy and appendectomy. 2. No hydronephrosis. Khris Antonio MD Lower Extremity Ultrasound 10/09/16 1409 Signed Impressions: Service Date/Time: September 14:24 - CONCLUSION: Normal examination. Brock Sanchez MD Objective Remarks GENERAL: This is a well-nourished, well-developed patient, in no apparent distress. CARDIOVASCULAR: Regular rate and regular rhythm without murmurs, gallops, or rubs. RESPIRATORY: Clear to auscultation. Breath sounds equal bilaterally. No wheezes , rales, or rhonchi. GASTROINTESTINAL: Abdomen soft, non-tender, nondistended. Normal, active bowel sounds MUSCULOSKELETAL: Extremities with bilateral pedal edema. NEURO: Alert & Oriented x4 to person, place, time, situation. Moves all ext x4 Procedures none Medications and IVs Current Medications Sodium Chloride (NS Flush) 2 ml UNSCH PRN IVF FLUSH AFTER USING IV ACCESS; Start 10/09/16 at 13:00 Nitroglycerin (Nitroglycerin 2% Oint) 1 inch ONCE ONCE TOPICAL Last administered on 10/09/16 13:09; Start 10/09/16 at 13:00; Stop 10/09/16 at 13:01 ; Status DC Furosemide (Lasix Inj) 40 mg ONCE ONCE IV PUSH Last administered on 10/09/16 13:36; Start 10/09/16 at 13:30; Stop 10/09/16 at 13:31; Status DC Alprazolam (Xanax) 0.5 mg ONCE ONCE PO Last administered on 10/09/16 13:50; Start 10/09/16 at 14:00; Stop 10/09/16 at 14:01; Status DC Clonidine (Catapres) 0.2 mg ONCE ONCE PO Last administered on 10/09/16 14:40 ; Start 10/09/16 at 14:00; Stop 10/09/16 at 14:01; Status DC Dextrose (D50w (Vial) Inj) 50 ml UNSCH PRN IV HYPOGLYCEMIA-SEE COMMENTS; Start 10/09/16 at 14:45 Glucagon (Glucagon Inj) 1 mg UNSCH PRN OTHER HYPOGLYCEMIA-SEE COMMENTS; Start 10/09/16 at 14:45 Insulin Aspart (NovoLOG SUPPLEMENTAL SCALE) 1 ACHS SLIDING SCALE SQ Last administered on 10/10/16 22:02; Start 10/09/16 at 16:00 Alprazolam (Xanax) 0.25 mg HS PO Last administered on 10/10/16 22:03; Start at 21:00 Aspirin (Aspirin Chew) 81 mg DAILY CHEW Last administered on 10/11/16 08:42; Start 10/10/16 at 09:00 Atorvastatin Calcium (Lipitor) 20 mg HS PO Last administered on 10/10/16 20:59 ; Start 10/09/16 at 21:00 Citalopram Hydrobromide (CeleXA) 20 mg DAILY PO Last administered on 10/11/16 08:42; Start 10/10/16 at 09:00 Doxazosin Mesylate (Cardura) 4 mg DAILY PO Last administered on 10/11/16 08:43 ; Start 10/10/16 at 09:00 Fenofibrate (Tricor) 145 mg DAILY PO Last administered on 10/11/16 08:42; Start 10/10/16 at 09:00 Losartan Potassium (Cozaar) 100 mg DAILY PO ; Start 10/10/16 at 09:00; Stop at 09:00; Status DC Enalaprilat (Vasotec Inj) 1.25 mg Q8H PRN IV PUSH SBP> OR = 180, DBP> OR = 100 Last administered on 10/10/16 16:10; Start 10/09/16 at 15:00 Labetalol HCl (Trandate) 200 mg Q12HR PO Last administered on 10/11/16 08:48; Start 10/09/16 at 21:00 Losartan Potassium (Cozaar) 50 mg Q12HR PO Last administered on 10/11/16 08:42 ; Start 10/09/16 at 21:00 Furosemide (Lasix) 20 mg BID@09,18 PO Last administered on 10/11/16 08:43; Start 10/09/16 at 18:00 Clonidine (Catapres) 0.1 mg ONCE ONCE PO Last administered on 10/09/16 23:48 ; Start 10/09/16 at 23:45; Stop 10/09/16 at 23:46; Status DC Diphenhydramine HCl (Benadryl) 25 mg ONCE ONCE PO Last administered on 01:09; Start 10/10/16 at 00:45; Stop 10/10/16 at 00:48; Status DC Clonidine (Catapres) 0.1 mg ONCE ONCE PO Last administered on 10/10/16 03:18 ; Start 10/10/16 at 03:15; Stop 10/10/16 at 03:16; Status DC Alprazolam (Xanax) 0.5 mg ONCE ONCE PO Last administered on 10/10/16 03:17; Start 10/10/16 at 03:15; Stop 10/10/16 at 03:16; Status DC Hydralazine HCl (Apresoline Inj) 10 mg Q30M PRN IV PUSH bp>170/90 Last administered on 10/10/16 23:00; Start 10/10/16 at 05:15 Iohexol (Omnipaque 350 Inj) 100 ml STK-MED ONCE IV Last administered on 05:00; Start 10/10/16 at 05:00; Stop 10/10/16 at 07:02; Status DC Hydralazine HCl (Apresoline) 25 mg Q12HR PO Last administered on 10/11/16 08: 42; Start 10/10/16 at 21:00 Nitroglycerin (Nitroglycerin 2% Oint) 0.5 inch Q6HR TOPICAL Last administered on 10/11/16 06:19; Start 10/11/16 at 00:00 Morphine Sulfate (Morphine Inj) 2 mg ONCE ONCE IV PUSH Last administered on 5/ 27/17at 00:22; Start 10/11/16 at 00:00; Stop 10/11/16 at 00:01; Status DC Miscellaneous Information HOLD METFORMIN FOR... Q24H .XX ; Start 10/10/16 at 06: 00; Stop 10/12/16 at 05:59 A/P Assessment and Plan A/P - CHF- acute on chronic diastolic- EF 55% continue with diuretics- cardiology follow-up appreciated; f/u as outpatient. pulmonary following. -hypertension; better uncontrolled; resumed home meds- vasotec prn- will monitor and adjust the regimen as needed. -diabetes mellitus; hold oral hypoglycemics as this time- accu-check with SSI -renal insufficiency with unknown duration- fairly stable- f/u as outpatient. -history of rectal cancer- -DVT prophylaxis with SCD's -PT evaluation appreciated. Discharge Planning dc home when cleared by pulmonary. see med list. f/u;pcp,cardiology and pulmonary. d/w the patient. Geno Bravo MD October 11, 2016 09:52
[2016-10-11] MEDS ORDERED: LABE200T2 PO (09:56)
[2016-10-11] MEDS ORDERED: COZA50TA PO (09:56)
[2016-10-11] MEDS ORDERED: FURO20TA PO (09:56)
[2016-10-11] MEDS ORDERED: HYDR-3799 PO (09:56)
--- NOTE | 2016-10-11 09:56 | HHI.DCPOC ---
Discharge Care Plan Diagnosis: (1) Pulmonary edema Your Health Problems Are: Exercise Tolerance Shortness of Breath Goals to Promote Your Health * To prevent worsening of your condition and complications * To maintain your health at the optimal level Directions to Meet Your Goals Take your medications as prescribed Follow your dietary instruction Follow activity as directed Keep your appointments as scheduled Take your immunizations and boosters as scheduled If your symptoms worsen call your PCP, if no PCP go to Urgent Care Center or Emergency Room Smoking is Dangerous to Your Health. Avoid second hand smoke Call the 24-hour hour crisis hotline for domestic abuse at Geno Bravo MD October 11, 2016 09:56
--- NOTE | 2016-10-11 09:57 | HHI.DS ---
Discharge Summary Admission Date October 09, 2016 at 14:20 Discharge Date: October 11, 2016 Admitting Diagnosis pulmonary edema (1) Pulmonary edema ICD Code: J81.1 Diagnosis: Principal Procedures none Brief History - From Admission patient is a 66 y/o male with history of hypertension and diabetes who presented to ER with shortness of breath. he says that he started to have sob about two weeks which has been getting worse. he denies any chest pain. he reports 14 pound weigh gain over the past two weeks. he's had orthopnea along with worsening pedal edema.he denies any abdominal pain, fever or chills. he says that his sob has got worse to the extent that he's sot able to walk as much. CBC/BMP: 10/09/16 1240 10/11/16 0613 Significant Findings Laboratory Tests Test 10/09/16 10/10/16 10/11/16 12:40 21:30 06:13 White Blood Count 3.7 TH/MM3 (4.0-11.0) Red Blood Count 4.32 MIL/MM3 (4.50-5.90) Hemoglobin 10.4 GM/DL (13.0-17.0) Hematocrit 33.0 % (39.0-51.0) Mean Corpuscular Volume 76.3 FL (80.0-100.0) Mean Corpuscular Hemoglobin 23.9 PG (27.0-34.0) Mean Corpuscular Hemoglobin 31.4 % Concent (32.0-36.0) Monocytes (%) (Auto) 12.1 % (0.0-8.0) Lymphocytes # (Auto) 0.7 TH/MM3 (1.0-4.8) Rouleau PRESENT (NORMAL) D-Dimer Quantitative (PE/DVT) 0.76 MG/L FEU (0.00-0.50) Sodium Level 147 MEQ/L (136-145) Chloride Level 111 MEQ/L 108 MEQ/L (98-107) (98-107) Blood Urea Nitrogen 23 MG/DL (7-18) 27 MG/DL (7-18) 25 MG/DL (7-18) Creatinine 1.50 MG/DL 1.70 MG/DL 1.40 MG/DL (0.60-1.30) (0.60-1.30) (0.60-1.30) Estimat Glomerular Filtration 47 ML/MIN (>89) 41 ML/MIN (>89) 51 ML/MIN (>89) Rate Alkaline Phosphatase 31 U/L (45-117) B-Type Natriuretic Peptide 149 PG/ML (0-100) Albumin 3.3 GM/DL (3.4-5.0) Random Glucose 153 MG/DL (74-106) Potassium Level 3.4 MEQ/L (3.5-5.1) Imaging Last Impressions Chest X-Ray 10/11/16 0000 Signed Impressions: Service Date/Time: Tuesday, October 11, 2016 08:59 - CONCLUSION: There are small bilateral pleural effusions with associated compressive atelectasis and/or consolidation at the lung bases. Findings have not significantly changed when compared to the chest CT from 2 days ago. Brock Lopez MD Chest Ultrasound 10/10/16 0000 Signed Impressions: Service Date/Time: Monday, October 10, 2016 15:17 - CONCLUSION: 1. Pleural effusion as above Lionel Clark MD Aorta CTA 10/10/16 0000 Signed Impressions: Service Date/Time: Monday, October 10, 2016 05:55 - CONCLUSION: 1. No aortic dissection. No aneurysm. 2. Pleural effusions with bibasilar atelectasis. 3. Mild crump chamber enlargement of the heart and a small pericardial effusion. 4. Mild edema/trace fluid in the abdomen, mostly retroperitoneal. Brock Gooden MD Chest CT 10/09/16 1414 Signed Impressions: Service Date/Time: September 15:03 - CONCLUSION: 1. Small bilateral pleural effusions with dependent airspace disease in both lungs most characteristic of atelectasis. Trace pericardial effusion. No adenopathy. No acute findings in the upper abdomen. Khris Antonio MD Abdomen/Pelvis CT 10/09/16 1414 Signed Impressions: Service Date/Time: September 15:03 - CONCLUSION: 1. No acute findings within the abdomen. Small bilateral pleural effusions.. Mild anasarca. Previous cholecystectomy and appendectomy. 2. No hydronephrosis. Khris Antonio MD Lower Extremity Ultrasound 10/09/16 1409 Signed Impressions: Service Date/Time: September 14:24 - CONCLUSION: Normal examination. Brock Sanchez MD PE at Discharge GENERAL: This is a well-nourished, well-developed patient, in no apparent distress. CARDIOVASCULAR: Regular rate and regular rhythm without murmurs, gallops, or rubs. RESPIRATORY: Clear to auscultation. Breath sounds equal bilaterally. No wheezes , rales, or rhonchi. GASTROINTESTINAL: Abdomen soft, non-tender, nondistended. Normal, active bowel sounds MUSCULOSKELETAL: Extremities with bilateral pedal edema. NEURO: Alert & Oriented x4 to person, place, time, situation. Moves all ext x4 Hospital Course - CHF- acute on chronic diastolic- EF 55% continue with diuretics- cardiology follow-up appreciated; f/u as outpatient. pulmonary following. -hypertension; better uncontrolled; resumed home meds- vasotec prn- will monitor and adjust the regimen as needed. -diabetes mellitus; hold oral hypoglycemics as this time- accu-check with SSI -renal insufficiency with unknown duration- fairly stable- f/u as outpatient. -history of rectal cancer- -DVT prophylaxis with SCD's -PT evaluation appreciated. Pt Condition on Discharge: Fair Discharge Disposition: Discharge Home Discharge Time: <= 30 minutes Discharge Instructions DIET: Follow Instructions for: Heart Healthy Diet, Diabetic Diet Activities you can perform: Regular-No Restrictions Follow up Referrals: Cardiology PCP Follow-up Pulmonology New Medications: Nitroglycerin SL (Nitroglycerin SL) 0.4 Mg Subl 0.4 MG SL DIRECTED ONE TABLET UNDER THE TONGUE NEEDED FOR CHEST PAIN, MAY REPEAT EVERY FIVE MINUTES FOR A TOTAL OF 3 DOSES OR CALL 911 IF NO RELIEF PRN CHEST PAIN #20 Ref 0 TAB.SL Potassium Chloride ER (Potassium Chloride ER) 10 Meq Cap 10 MEQ PO DAILY Electrolyte Replacement #30 Ref 0 CAP Furosemide (Furosemide) 20 Mg Tab 20 MG PO BID@09,18 diuretic Days 30 Ref 0 TAB Hydralazine HCl (Hydralazine HCl) 25 Mg Tablet 25 MG PO Q12HR hypertension Days 30 Ref 0 TAB Labetalol (Labetalol) 200 Mg Tab 200 MG PO Q12HR hypertension Days 30 Ref 0 TAB Losartan (Cozaar) 50 Mg Tab 50 MG PO Q12HR hypertension Days 30 Ref 0 TAB Continued Medications: Alprazolam (Alprazolam) 0.25 Mg Tab 0.25 MG PO HS ANXIETY Ref 0 TAB Aspirin (Aspirin) 81 Mg Chew 81 MG CHEW DAILY Ref 0 TAB Atorvastatin (Lipitor) 20 Mg Tab 20 MG PO HS Cholesterol Management #30 Ref 0 TAB Citalopram (Citalopram) 20 Mg Tab 20 MG PO DAILY Control Depression #30 Ref 0 TAB Doxazosin (Cardura) 4 Mg Tab 4 MG PO DAILY #30 Ref 0 TAB Fenofibrate (Tricor) 145 Mg Tab 145 MG PO DAILY Takw with food. #30 Ref 0 TAB Glipizide (Glipizide) 5 Mg Tab 2.5 MG PO BIDAC Take 30 minutes before a meal Blood Sugar Management #60 Ref 0 TAB Discontinued Medications: Furosemide (Furosemide) 20 Mg Tab 20 MG PO DAILY #30 Ref 0 TAB Losartan (Losartan) 100 Mg Tab 100 MG PO DAILY Blood Pressure Management #30 Ref 0 TAB Metformin (Metformin) 1,000 Mg Tab 1000 MG PO BIDPC With meals Blood Sugar Management #60 Ref 0 TAB Geno Bravo MD October 11, 2016 09:57
[2016-10-11] MEDS ORDERED: POTA10CA PO (09:58)
[2016-10-11 10:35] VITALS: PULSE 61
[2016-10-11] MEDS ORDERED: POTASSIUM CHLORIDE 20 MEQ CONTROLLED RELEASE TAB PO ONE (11:00)
[2016-10-11 12:00] VITALS: BP 147/73; PULSE 58; RESP 20; TEMP 96.3; O2SAT 95
[2016-10-11] MEDS ORDERED: NITR1SUB3 SL (13:27)
--- NOTE | 2016-10-11 17:03 | EKG ---
Date Performed: 10/11/2016 Time Performed: 00:00:08 PTAGE: 66 years EKG: Sinus rhythm . Prolonged QT interval Lateral T wave changes are nonspecific Since previous tracing 10/09/2016, QT i ntervals are much more prolonged, otherwise no significant change. Borderline ECG PREVIOUS TRACING 10/09/20162 .27.18 DOCTOR: Carlos Reed Interpretating Date/Time 10/11/2016 17:02:26
--- NOTE | 2016-10-11 17:05 | EKG ---
Date Performed: 10/11/2016 Time Performed: 05:52:18 PTAGE: 66 years EKG: Sinus rhythm . Inferior/lateral T wave changes are nonspecific Since previous tracing 10/11/2016, QT interval no lo nger prolonged. Otherwise no significant change. Borderline ECG PREVIOUS TRACING : 10/11/2016 00.00 DOCTOR: Carlos Reed Interpretating Date/Time 10/11/2016 17:04:01
--- NOTE | 2016-10-12 15:19 | EKG ---
Date Performed: 10/11/2016 Time Performed: 11:45:26 PTAGE: 66 years EKG: Sinus bradycardia. Prolonged QT interval Lateral T wave changes are nonspecific When compar ed to previous tracing, QT interval is somewhat more Prolonged, otherwise no significant change. Lisa kassy ECG PREVIOUS TRACING : 10/11/2016 05.52.18 DOCTOR: Carlos Reed Interpretating Date/Time 10/12/2016 15:18:35
== END 2016-10-11 14:10 | disposition home or self-care (01) | DRG 291 ==
LOC: PHED 12:25 → PHEDA 14:20 → PH3B 15:28
PROVIDERS: ADMIT Internal Medicine; ATTEND Internal Medicine
DX: I13.0 Hypertensive heart and chronic kidney disease with heart failure and stage 1 through stage 4 chronic kidney disease, or unspecified chronic kidney disease (principal); I50.33 Acute on chronic diastolic (congestive) heart failure; E11.22 Type 2 diabetes mellitus with diabetic chronic kidney disease; J44.9 Chronic obstructive pulmonary disease, unspecified; E78.5 Hyperlipidemia, unspecified; F41.9 Anxiety disorder, unspecified; G47.33 Obstructive sleep apnea (adult) (pediatric); I25.10 Atherosclerotic heart disease of native coronary artery without angina pectoris; N18.9 Chronic kidney disease, unspecified; Z79.84 Long term (current) use of oral hypoglycemic drugs; Z85.048 Personal history of other malignant neoplasm of rectum, rectosigmoid junction, and anus
CPT/HCPCS: 71010; 71020; 71250; 71275; 74174; 74176; 76604; 80048; 80053; 82550; 82552; 82948; 83880; 84484; 85025; 85379; 85610; 85730; 93005; 93308; 93970; 96374; J0360; J1815; J1940; J2270; Q9967